=== PATIENT | female | born 1995 | race Caucasian/White ===

== ENCOUNTER → 2017-08-03 | Outpatient (CLI) | payer BC ==
[~2017-08-03] MED LIST: AMOX500 PO; BCP'S; CODGUAEL PO; IBUP400 PO; IBUP800 PO; Verotin-Gr Cap1 EACH PO
[2017-08-12 08:51] LABS: CHLAMYDIA TRACHOMATIS, NAA Negative (Negative); NEISSERIA GONORRHOEAE, NAA Negative (Negative)
== END ==
LOC: LAB 15:52 → LAB SHORT 15:52
PROVIDERS: Obstetrics & Gynecology
DX: Z34.80 Encounter for supervision of other normal pregnancy, unspecified trimester (principal)
CPT/HCPCS: 87491; 87591; G0123

== ENCOUNTER 2018-05-25 07:23 | Day surgery (SDC) | payer BC, OTHER ==
[~2018-05-25] VITALS: Ht 170.2 cm; Wt 97.9 kg
[~2018-05-25 07:23] MED LIST changes: +ENOX100I SC; +XARELTO20 MG PO
--- NOTE | 2018-05-25 08:37 | NUR ---
05/25/18 0837 Cynthia Samuels PT WITH SMALL ROUND SCABS OVER ARMS,ABDOMEN, AND BREASTS. MADE AWARE. NO FURTHER ORDERS AT THIS TIME GIVEN.
--- NOTE | 2018-05-25 09:13 | NUR ---
05/25/18 0913 Nelsy Milian PT DENIES PAIN AND NAUSEA, MEETS CRITERIA FOR TRANSFER TO SDU
--- NOTE | 2018-05-25 09:25 | NUR ---
05/25/18 0925 Jessica Tracy PT UP INTO RECLINER, AT SIDE. VSS.
== END 2018-05-25 10:15 | disposition home or self-care (01) ==
LOC: ORSCSDS 07:23
PROVIDERS: Obstetrics & Gynecology
PROC: 0UT74ZZ Resection of Bilateral Fallopian Tubes, Percutaneous Endoscopic Approach (ICD-10-PCS; principal; 2018-05-25 08:30)
DX: Z30.2 Encounter for sterilization (principal); Z86.718 Personal history of other venous thrombosis and embolism; E66.9 Obesity, unspecified; Z68.33 Body mass index [BMI] 33.0-33.9, adult; Z79.01 Long term (current) use of anticoagulants
CPT/HCPCS: J1100; J1644; J1885; J2250; J2405; J2710; J3010; J7120